=== PATIENT | female | born 1975 | race Caucasian/White ===

== ENCOUNTER → 2022-01-10 11:51 | Outpatient (CLI) | payer OTHER, SELFPAY ==
--- NOTE | 2022-01-10 11:56 | DI.MG.S_ITS ---
BILATERAL DIGITAL SCREENING MAMMOGRAM 3D/2D WITH CAD: 01/10/2022 CLINICAL: Routine screening. Comparison is made to exams dated: 09/17/2018 mammogram, 04/30/2017 mammogram, and 05/02/2015 mammogram - outside facility. The tissue of both breasts is heterogeneously dense. This may lower the sensitivity of mammography. Current study was also evaluated with a Computer Aided Detection (CAD) system. No significant masses, calcifications, or other findings are seen in either breast. There has been no significant interval change. IMPRESSION: NEGATIVE There is no mammographic evidence of malignancy. A 1 year screening mammogram is recommended. This exam was interpreted at Station ID: [id number]. NOTE: For mammograms, a report in lay terms will be sent to the patient. Approximately 15% of breast malignancies will not be visualized mammographically. In the management of a palpable breast mass, a negative mammogram must not discourage biopsy of a clinically suspicious lesion. Electronically Signed By: Keyon Mayen M.D., jr/marianne:01/10/2022 16:37:09 letter sent: Normal Exam ACR BI-RADS Category 1: Negative 3341F
== END ==
PROVIDERS: PCP Nurse Practitioner Family; Referring Provider Nurse Practitioner Family; Visit Provider Nurse Practitioner Family
DX: Z12.31 Encounter for screening mammogram for malignant neoplasm of breast (principal)
CPT/HCPCS: 77063; 77067

== ENCOUNTER → 2024-02-02 15:13 | Outpatient (CLI) | payer OTHER, SELFPAY ==
--- NOTE | 2024-02-02 | DI.MG.S_ITS ---
BILATERAL DIGITAL SCREENING MAMMOGRAM 3D/2D WITH CAD: 02/02/2024 CLINICAL: Routine screening. Family history of breast cancer. Comparison is made to exams dated: 01/10/2022 mammogram - [facility], 09/17/2018 mammogram, and 04/30/2017 mammogram - outside facility. Both breasts are extremely dense, which lowers the sensitivity of mammography (category d />75% glandular tissue). Current study was also evaluated with a Computer Aided Detection (CAD) system. No significant masses, calcifications, or other findings are seen in either breast. There has been no significant interval change. IMPRESSION: NEGATIVE There is no mammographic evidence of malignancy. A 1 year screening mammogram is recommended. Based on the Tyrer Cuzick model (a risk assessment model) the patient's lifetime risk is 18.1% and her 10 year risk is 4.2%. According to the ACR, ACS, and NCCN guidelines, an annual breast MRI exam along with mammogram is recommended if the patient's lifetime risk is 20% or greater. This exam was interpreted at Station ID: [id number]. NOTE: For mammograms, a report in lay terms will be sent to the patient. Approximately 15% of breast malignancies will not be visualized mammographically. In the management of a palpable breast mass, a negative mammogram must not discourage biopsy of a clinically suspicious lesion. Electronically Signed By: Marita Simpson M.D., PH.D maricruz/marianne:02/03/2024 09:53:41 letter sent: Normal Exam ACR BI-RADS Category 1: Negative 3341F
== END ==
LOC: MAMMO 15:14
PROVIDERS: PCP Student in an Organized Health Care Education/Training Program; Referring Provider Student in an Organized Health Care Education/Training Program; Visit Provider Student in an Organized Health Care Education/Training Program
DX: Z12.31 Encounter for screening mammogram for malignant neoplasm of breast (principal); Z80.3 Family history of malignant neoplasm of breast; R92.343 Mammographic extreme density, bilateral breasts
CPT/HCPCS: 77063; 77067

== ENCOUNTER → 2024-05-31 09:31 | Outpatient (CLI) | payer OTHER, SELFPAY ==
--- NOTE | 2024-05-31 | DI.US.S_ITS ---
LIMITED ULTRASOUND OF LEFT BREAST: 05/31/2024 CLINICAL: Palpable left breast lump. Comparison is made to exams dated: 05/31/2024 mammogram, 02/02/2024 mammogram, 01/10/2022 mammogram - [facility], 09/17/2018 mammogram, 04/30/2017 mammogram, and 05/02/2015 mammogram - outside facility. Color flow and real-time ultrasound of the left breast 2 o'clock and 4 o'clock regions were performed. Mishra scale images of the real-time examination were reviewed. There is a 2.1 cm x 2.1 cm x 1.5 cm oval cyst with layering and mobile debris with a thin, smooth wall in the left breast at 2 o'clock middle depth 4 cm from the nipple. This oval cyst with debris is anechoic with a well-defined boundary and posterior acoustic enhancement. This correlates as palpated. Color flow imaging demonstrates that there is no vascularity present. There is no sonographic correlate to the possible asymmetry seen on mammogram in the lateral left breast on one image only. IMPRESSION: PROBABLY BENIGN The 2.1 cm x 2.1 cm x 1.5 cm oval cyst with debris in the left breast is consistent with a complicated cyst and is probably benign. There is no abnormality seen in the left breast to correspond with the mammography finding in the lateral aspect. A follow-up left mammogram and an ultrasound in 6 months is recommended to demonstrate stability of both findings. Findings and recommendations were conveyed to the patient at time of exam. This exam was interpreted at Station ID: [id number]. Electronically Signed By: Ping cole/:05/31/2024 11:16:42 letter sent: Followup Recommended Ultrasound BI-RADS: 3 Probably benign
--- NOTE | 2024-05-31 09:33 | DI.MG.S_ITS ---
UNILATERAL LEFT DIGITAL DIAGNOSTIC MAMMOGRAM 3D/2D: 05/31/2024 CLINICAL: Breast lump. Comparison is made to exams dated: 02/02/2024 mammogram, 01/10/2022 mammogram - [facility], and 09/17/2018 mammogram - outside facility. The left breast is extremely dense, which lowers the sensitivity of mammography (category d />75% glandular tissue). There is an incidental possible developing new 9 mm irregular equal density asymmetry with a spiculated margin in the left breast middle depth central to the nipple seen on the mediolateral oblique view only. This is not seen in additional views. No other significant masses or calcifications are seen in the breast. Specifically, no finding to correspond to the patient's 2:00 palpable abnormality. IMPRESSION: INCOMPLETE: NEEDS ADDITIONAL IMAGING EVALUATION The possible developing new 9 mm irregular equal density asymmetry in the left breast is indeterminate. An ultrasound is recommended. This was performed immediately following this exam. There is no abnormality seen in the left breast to correspond with the palpable abnormality at 2 o'clock. Ultrasound is recommended for full evaluation of this area. This was performed immediately following this exam. Based on the Tyrer Cuzick model (a risk assessment model) the patient's lifetime risk is 17.9% and her 10 year risk is 4.3%. According to the ACR, ACS, and NCCN guidelines, an annual breast MRI exam along with mammogram is recommended if the patient's lifetime risk is 20% or greater. This exam was interpreted at Station ID: [id number]. NOTE: For mammograms, a report in lay terms will be sent to the patient. Approximately 15% of breast malignancies will not be visualized mammographically. In the management of a palpable breast mass, a negative mammogram must not discourage biopsy of a clinically suspicious lesion. Electronically Signed By: Ping cole/:05/31/2024 10:36:13 ACR BI-RADS Category 0: Incomplete 3340F
== END ==
PROVIDERS: PCP Student in an Organized Health Care Education/Training Program; Referring Provider Physician Assistant; Visit Provider Physician Assistant
DX: R92.2 Inconclusive mammogram (principal); N63.20 Unspecified lump in the left breast, unspecified quadrant; N60.02 Solitary cyst of left breast; R92.342 Mammographic extreme density, left breast
CPT/HCPCS: 76642; 77065; G0279

== ENCOUNTER → 2024-07-06 08:54 | Outpatient (CLI) | payer OTHER, SELFPAY ==
--- NOTE | 2024-07-06 08:55 | DI.MRI.S_ITS ---
PROCEDURE: MR FOOT RT WO CON INDICATIONS: PAIN IN RIGHT FOOT TECHNIQUE: Multiphasic, multisequence MRI of the forefoot was performed, without intravenous contrast administration. COMPARISON: None. FINDINGS: Image quality: Excellent. Bones and joints: Normal marrow signal. No acute fracture or dislocation. No significant degenerative changes. Soft tissues: Mild subcutaneous edema about the 5th metatarsal head, nonspecific. The visualized plantar foot muscles demonstrate normal signal and bulk. Visualized flexor and extensor tendons appear intact, without tenosynovitis. The distal insertions of the peroneus brevis and longus tendons appear intact. The principal Lisfranc ligament appears intact. No soft tissue ganglion cysts or bursal fluid collections. IMPRESSION: Mild subcutaneous edema about the 5th metatarsal head, nonspecific. Dictated by: Camilla Quan M.D. on 07/06/2024 at 17:31 Approved by: Camilla Quan M.D. on 07/06/2024 at 17:36
== END ==
PROVIDERS: PCP Student in an Organized Health Care Education/Training Program; Referring Provider Podiatrist; Visit Provider Podiatrist
DX: R22.41 Localized swelling, mass and lump, right lower limb (principal); M79.671 Pain in right foot
CPT/HCPCS: 73718

== ENCOUNTER → 2025-01-11 08:32 | Outpatient (CLI) | payer OTHER, SELFPAY ==
--- NOTE | 2025-01-11 08:33 | DI.MG.S_ITS ---
BILATERAL DIGITAL DIAGNOSTIC MAMMOGRAM 3D/2D: 01/11/2025 CLINICAL: Short term follow up, due bilateral. Comparison is made to exams dated: 02/02/2024 mammogram, 05/31/2024 ultrasound, 05/31/2024 mammogram, and 01/10/2022 mammogram - [facility]. The breasts are extremely dense, which lowers the sensitivity of mammography (category d />75% glandular tissue). There is a possible asymmetry in the left breast middle depth central to the nipple is not seen in additional views. No other significant masses, calcifications, or other findings are seen in either breast. IMPRESSION: INCOMPLETE: NEED ADDITIONAL IMAGING EVALUATION The possible asymmetry in the left breast is indeterminate. A targeted ultrasound is recommended and will immediately follow. Based on the Tyrer Cuzick model (a risk assessment model) the patient's lifetime risk is 17.9% and her 10 year risk is 4.3%. According to the ACR, ACS, and NCCN guidelines, an annual breast MRI exam along with mammogram is recommended if the patient's lifetime risk is 20% or greater. This exam was interpreted at Station ID: [id number]. NOTE: For mammograms, a report in lay terms will be sent to the patient. Approximately 15% of breast malignancies will not be visualized mammographically. In the management of a palpable breast mass, a negative mammogram must not discourage biopsy of a clinically suspicious lesion. Electronically Signed By: Kermit Monterroso M.D. [facility]/:01/11/2025 09:17:52 letter sent: Additional Imaging Needed ACR BI-RADS Category 0: Incomplete: Need Additional Imaging Evaluation
--- NOTE | 2025-01-11 08:34 | DI.US.S_ITS ---
LIMITED ULTRASOUND OF LEFT BREAST: 01/11/2025 CLINICAL: 6 month follow-up of cysts. Comparison is made to exams dated: 01/11/2025 mammogram, 05/31/2024 ultrasound, 05/31/2024 mammogram, and 02/02/2024 mammogram - [facility]. Color flow and real-time ultrasound of the left breast 2 o'clock and 4 o'clock regions were performed. Mishra scale images of the real-time examination were reviewed. There is a stable 0.5 cm x 0.5 cm x 0.4 cm oval cyst in the left breast at 4 o'clock middle depth 5 cm from the nipple. This oval cyst is hypoechoic with posterior acoustic enhancement. Color flow imaging demonstrates that there is no vascularity present. There also is a benign 1.1 cm x 1 cm x 0.7 cm oval complicated cyst with a smooth internal wall in the left breast at 2 o'clock middle depth 4 cm from the nipple. This oval complicated cyst is hypoechoic with a well-defined boundary, internal echoes, and posterior acoustic enhancement. This abnormality is decreased in size and correlates as palpated. Color flow imaging demonstrates that there is no vascularity present. IMPRESSION: PROBABLY BENIGN The stable 0.5 cm complicated cyst in the left breast at 4 o'clock middle depth is probably benign. -A follow-up ultrasound in 6 months is recommended. The 1.1 cm complicated cyst in the left breast at 2 o'clock middle depth is decreased in size and is benign. Exam findings were conveyed to the patient. This exam was interpreted at Station ID: [id number]. Electronically Signed By: Kermit Monterroso M.D. slc/:01/11/2025 10:35:32 letter sent: Followup Recommended ACR BI-RADS Category 3: Probably Benign
== END ==
LOC: MAMMO 08:33
PROVIDERS: PCP Student in an Organized Health Care Education/Training Program; Referring Provider Nurse Practitioner Family; Visit Provider Nurse Practitioner Family
DX: R92.2 Inconclusive mammogram (principal); N63.20 Unspecified lump in the left breast, unspecified quadrant; N60.02 Solitary cyst of left breast; R92.343 Mammographic extreme density, bilateral breasts
CPT/HCPCS: 76642; 77066; G0279